=== PATIENT | male | born 1940 | race Caucasian/White ===

== ENCOUNTER → 2017-01-05 15:59 | Outpatient (CLI) | payer MEDICARE, OTHER ==
[2012-10-03 07:28] VITALS: BMI 29.9
== END | disposition home or self-care (01) ==
LOC: D.CT 15:59
DX: I65.22 Occlusion and stenosis of left carotid artery (principal)

== ENCOUNTER → 2017-09-20 10:30 | Outpatient (CLI) | payer MEDICARE, OTHER ==
[2012-10-03 07:28] VITALS: BMI 29.9
[~2017-09-20 10:30] MED LIST: BAYER CHEWABLE81 MG PO; CO Q-10200 MG PO; COUMADIN2.5 MG PO; COUMADIN5 MG PO; GLUCOTROL 5 MG T5 MG PO; HYDROCODONE-APA1 TAB PO; ISOSORBIDE MONO60 M1 PO; LIVALO2 MG PO; LOTENSIN20 MG PO; NITROSTAT0.4 MG SL; OMEGA 3 FISH OI1 CAP PO; SORINE80 MG PO; TRIGLIDE160 MG PO; VALIUM5 MG PO
== END | disposition home or self-care (01) ==
LOC: D.MRI 10:30
DX: M54.16 Radiculopathy, lumbar region (principal)

== ENCOUNTER → 2017-09-21 08:04 | Outpatient (CLI) | payer MEDICARE, OTHER ==
[2012-10-03 07:28] VITALS: BMI 29.9
== END | disposition home or self-care (01) ==
LOC: D.CT 08:04
DX: R10.84 Generalized abdominal pain (principal)

== ENCOUNTER 2017-10-26 06:42 | Outpatient (CLI) | payer MEDICARE, OTHER ==
[~2017-10-26] VITALS: Ht 180.3 cm; Wt 97.7 kg
[2017-10-26 07:56] LABS: BASOPHILS 0.6 % (0-2); EOSINOPHILS 1.8 % (0-7); HEMATOCRIT 40.8 % (42.0-54.0); HEMOGLOBIN 13.5 g/dL (13.5-17.5); LYMPHOCYTES 27.8 % (15-50); MCH 30.1 pg (26.0-34.0); MCHC 33.1 g/dL (31.0-37.0); MCV 90.9 fL (80.0-100.0); MEAN PLATELET VOLUME 12.6 fL (7.4-10.4); NEUTROPHILS 61.8 % (40-80); PLATELET COUNT 131 10x3/uL (130-400); RBC 4.49 10x6/uL (4.20-6.10); RDW 12.6 % (11.5-14.5); WBC 4.9 10x3/uL (4.8-10.8)
[2017-10-26 08:01] LABS: APTT 31.4 SECONDS (22.8-39.4); INR 1.46 (0.85-1.17); PROTIME 17.2 SECONDS (11.6-15.0)
[2017-10-26 08:06] LABS: CALC OSMOLALITY 286 mosm/kg (275-300); CALCIUM 8.9 mg/dL (8.5-10.1); CARBON DIOXIDE 26.6 mmol/L (21.0-32.0); CHLORIDE - SERUM 105 mmol/L (98-107); POTASSIUM - SERUM 4.5 mmol/L (3.5-5.1); SODIUM 142 mmol/L (136-145); UREA NITROGEN 24 mg/dL (7-18); eGFR NON AFRICAN AMERICAN 77 mL/min (90-120)
[2017-10-26 08:08] LABS: GLUCOSE 99 mg/dL (74-106)
[2017-10-26] MEDS ORDERED: ISOSORBIDE MONO60 M1 PO (08:11)
[2017-10-26] MEDS ORDERED: SORINE80 MG PO (08:20)
[2017-10-26] MEDS ORDERED: TRIGLIDE160 MG PO (08:23)
[2017-10-26] MEDS ORDERED: NITROSTAT0.4 MG SL (08:23)
[2017-10-26] MEDS ORDERED: LIVALO2 MG PO (08:24)
[2017-10-26] MEDS ORDERED: OMEGA 3 FISH OI1 CAP PO (08:24)
[2017-10-26] MEDS ORDERED: COUMADIN5 MG PO (08:25)
[2017-10-26] MEDS ORDERED: CO Q-10200 MG PO (08:25)
[2017-10-26] MEDS ORDERED: COUMADIN2.5 MG PO ×2 (08:25→08:26)
[2017-10-26] MEDS ORDERED: GLUCOTROL 5 MG T5 MG PO (08:26)
[2017-10-26] MEDS ORDERED: BAYER CHEWABLE81 MG PO (08:26)
[2017-10-26] MEDS ORDERED: LOTENSIN20 MG PO (08:27)
[2017-10-26] MEDS ORDERED: VALIUM5 MG PO (08:27)
[2017-10-26] MEDS ORDERED: HYDROCODONE-APA1 TAB PO (08:28)
[2017-10-26 08:36] VITALS: BP 130/85; Ht 180.3 cm; Wt 97.7 kg
== END 2017-10-26 14:40 | disposition home or self-care (01) ==
LOC: D.SP 06:42 → D.CT 08:00 → D.SP 09:00 → D.CT 09:00 → D.SP 14:40
PROVIDERS: Specialist
DX: N28.1 Cyst of kidney, acquired (principal); Z01.812 Encounter for preprocedural laboratory examination

== ENCOUNTER 2018-03-18 11:11 | Outpatient (CLI) | payer MEDICARE, OTHER ==
[~2018-03-18] VITALS: Ht 180.3 cm; Wt 96.8 kg
[2018-03-18 12:36] VITALS: BP 138/79; Ht 180.3 cm; Wt 96.8 kg
== END 2018-03-18 13:45 | disposition home or self-care (01) ==
LOC: D.OPS 11:11
DX: E86.0 Dehydration (principal); R19.7 Diarrhea, unspecified; Z01.812 Encounter for preprocedural laboratory examination

== ENCOUNTER 2019-01-04 18:08 | Emergency (ER) | payer MEDICARE, OTHER ==
[~2019-01-04] VITALS: Ht 180.3 cm; Wt 101.8 kg
[2019-01-04 18:15] VITALS: Ht 180.3 cm; Wt 101.8 kg
[2019-01-04 19:10] LABS: BASOPHILS 0.2 % (0-2); EOSINOPHILS 3.7 % (0-7); HEMATOCRIT 35.8 % (42.0-54.0); HEMOGLOBIN 11.9 g/dL (13.5-17.5); IMMATURE GRANULOCYTES 0.2 % (0-5); MCH 29.7 pg (26.0-34.0); MCHC 33.2 g/dL (31.0-37.0); MCV 89.3 fL (80.0-100.0); MEAN PLATELET VOLUME 11.1 fL (7.4-10.4); MONOCYTES 13.4 % (2-11); NEUTROPHILS 60.5 % (40-80); PLATELET COUNT 140 10x3/uL (130-400); RBC 4.01 10x6/uL (4.20-6.10); RDW 12.4 % (11.5-14.5)
[2019-01-04 19:29] LABS: ALBUMIN 3.1 g/dL (3.4-5.0); ANION GAP 9.8 mmol/L (8-16); BILIRUBIN - TOTAL 0.35 mg/dL (0.2-1.3); CALCIUM 8.1 mg/dL (8.5-10.1); CARBON DIOXIDE 28.1 mmol/L (21.0-32.0); CREATININE - SERUM 1.4 mg/dL (0.6-1.3); POTASSIUM - SERUM 4.9 mmol/L (3.5-5.1); PROTEIN - SERUM 5.7 g/dL (6.4-8.2)
[2019-01-04 21:20] VITALS: BP 137/59
== END 2019-01-04 21:20 | disposition home or self-care (01) ==
LOC: D.ER 18:08
PROVIDERS: Emergency Medicine
DX: H11.32 Conjunctival hemorrhage, left eye (principal); S51.012A Laceration without foreign body of left elbow, initial encounter; W19.XXXA Unspecified fall, initial encounter; S02.401A Maxillary fracture, unspecified side, initial encounter for closed fracture; R07.81 Pleurodynia; Z79.01 Long term (current) use of anticoagulants; I10 Essential (primary) hypertension; E11.9 Type 2 diabetes mellitus without complications; I48.91 Unspecified atrial fibrillation; Z86.73 Personal history of transient ischemic attack (TIA), and cerebral infarction without residual deficits